=== PATIENT | female | born 1990 | race Caucasian/White ===

== ENCOUNTER → 2017-12-26 | Outpatient (CLI) | payer BC ==
[~2017-12-26] MED LIST: NICOMIDE TABLE1 EAC1 PO; PROM25 PO; Percocet 5-3251 EACH PO; Verotin-Gr Cap1 EACH PO; [UNRECOGNIZED DRUG - OTHER]
[2017-12-26 15:49] LABS: Specimen Source VAG/CERVIX
[2017-12-27 10:31] LABS: Source VAG/CERVIX
== END | disposition home or self-care (01) ==
LOC: LAB 12:26
PROVIDERS: Advanced Practice Midwife
DX: Z36.89 Encounter for other specified antenatal screening (principal)
CPT/HCPCS: 87491; 87591; G0123

== ENCOUNTER 2018-07-10 09:36 | Inpatient (IN) | payer OTHER ==
[~2018-07-10] VITALS: Ht 160 cm; Wt 67.1 kg
[~2018-07-10 09:36] MED LIST changes: -NICOMIDE TABLE1 EAC1 PO; -Verotin-Gr Cap1 EACH PO; -[UNRECOGNIZED DRUG - OTHER]
[2018-07-10] MEDS ORDERED: NICOMIDE TABLE1 EAC1 PO (11:18)
[2018-07-10] MEDS ORDERED: Verotin-Gr Cap1 EACH PO (11:19)
[2018-07-10] MEDS ORDERED: [UNRECOGNIZED DRUG - OTHER] (11:21)
== END 2018-07-11 17:40 | disposition home or self-care (01) | DRG 807 ==
LOC: OBS 09:36 → BC 09:37 → OBS 11:26 → BC 11:28
PROC: 10E0XZZ Delivery of Products of Conception, External Approach (ICD-10-PCS; principal; 2018-07-10)
PROC: 0HQ9XZZ Repair Perineum Skin, External Approach (ICD-10-PCS; 2018-07-10)
DX: O70.0 First degree perineal laceration during delivery (principal); Z37.0 Single live birth; Z3A.40 40 weeks gestation of pregnancy
CPT/HCPCS: 59025; 81003; 99214; J2590; J7120

== ENCOUNTER → 2019-01-08 | Outpatient (CLI) | payer BC ==
[~2019-01-08] MED LIST changes: +NICOMIDE TABLE1 EAC1 PO; +Verotin-Gr Cap1 EACH PO; +[UNRECOGNIZED DRUG - OTHER]
[2019-01-10 04:09] LABS: CHLAMYDIA TRACHOMATIS, NAA Negative (Negative); NEISSERIA GONORRHOEAE, NAA Negative (Negative)
== END | disposition home or self-care (01) ==
LOC: LAB 11:12 → LAB SHORT 11:12
PROVIDERS: Advanced Practice Midwife
DX: Z11.3 Encounter for screening for infections with a predominantly sexual mode of transmission (principal)
CPT/HCPCS: 87491; 87591

== ENCOUNTER → 2022-02-01 | Outpatient (CLI) | payer BC | END | disposition home or self-care (01) | LOC: LAB SHORT 11:30 | DX: J02.9 Acute pharyngitis, unspecified (principal) | CPT/HCPCS: 87081; 87147 ==